=== PATIENT | male | born 1995 | race Caucasian/White ===

== ENCOUNTER 2020-05-01 10:26 | Emergency (ER) | payer OTHER, SELFPAY ==
--- NOTE | 2020-05-01 10:33 | ED.WOUNDLAC ---
HPI - Wound/Laceration General Chief Complaint: Wound/Laceration Stated Complaint: Finger Lac Time Seen by Provider: 05/01/20 10:39 Source: patient and RN notes reviewed Mode of arrival: ambulatory Limitations: no limitations History of Present Illness HPI narrative: 25 year old male presents with injury to second digit of left hand. Reports just prior to arrival while chopping abarca at work he lacerated the tip of the digit. Reports a large amount of bleeding, so he placed a rubber band around the digit. Reports he is up-to-date on his tetanus shot. Denies any other injury. Extremity Location: Left: hand Related Data Home Medications Medication Instructions Recorded Confirmed No Home Medications 05/01/20 05/01/20 Allergies Allergy/AdvReac Type Severity Reaction Status Date / Time NKDA Allergy Mild Other Uncoded 05/01/20 10:33 Review of Systems Review of Systems: Narrative: CONSTITUTIONAL: Denies malaise, chills, sweats, or fever. SKIN: Reports laceration to the tip of the second digit of the left hand MUSCULOSKELETAL: Denies muscle skeletal pain, decreased strength, sensation NEUROLOGIC: Denies numbness, weakness All systems reviewed & are unremarkable except as noted in HPI and below PMFSH Comments At time of signature, agree with nursing past medical, surgical, social and family history. There is no relevant family history pertinent to the presenting complaint Exam Narrative: Exam Narrative: GENERAL: Well-appearing, well-nourished, and in no acute distress. HEAD: Normocephalic EYES: PERRLA, conjunctivae clear NECK: Supple. CHEST: Speaks in full sentences. No respiratory distress. HEART: Regular rate and rhythm. Normal and equal peripheral pulses. EXTREMITIES: Second digit of left hand has normal strength and sensation. 5/5 strength with digit flexion, extension. Range of motion normal. No clubbing, cyanosis, or edema noted. Normal digital cascade with flexion of fingers, median, ulnar and radial nerve intact. Normal sensation of each side of finger. Can perform 'okay' sign, 'cross over finger test of index and middle fingers' and 'thumbs up' sign. Good capillary refill and radial pulse. Distal capillary refill less than 3 seconds. SKIN: Warn, dry, intact, pink. Skin avulsion involving tip of the nailbed noted to second digit of the left hand approximately 1 cm in diameter, beefy red tissue bed with minimal bleeding noted NEURO: Alert and oriented x3. PSYCH: Normal mood and affect Course Course Emergency Course: Patient is aware of diagnosis, understands and agrees to treatment plan. Anticipatory guidance given. Patient agrees to follow-up as directed and is aware of reasons to seek care at the emergency department. Portions of this record may have been created with voice recognition software Vital Signs Vital signs: Vital Signs Temperature 98.6 F 05/01/20 10:34 Pulse Rate 86 05/01/20 10:34 Respiratory Rate 12 05/01/20 10:34 Blood Pressure 154/85 H 05/01/20 10:34 Pulse Oximetry 99 05/01/20 10:34 Temperature 98.6 F 05/01/20 10:34 Pulse Rate 86 05/01/20 10:34 Respiratory Rate 12 05/01/20 10:34 Blood Pressure 154/85 H 05/01/20 10:34 Pulse Oximetry 99 05/01/20 10:34 Reviewed. MDM - Wound/Laceration MDM Narrative Medical decision making narrative: Surgicel applied, pressure held, hemostasis achieved. Sterile dressing applied. Anticipatory guidance given. Exam findings show no acute concerns or changes; patient is non-toxic appearing and is in no distress. Patient is appropriate for outpatient treatment and follow-up. Differential Diagnosis Differential diagnosis: Likely laceration, abrasion and avulsion of skin Critical Care Time Critical Care Time Critical Care Time: No Discharge Plan Discharge Clinical Impression: Avulsion of skin Patient Disposition: Home, Self-Care Condition: Stable Instructions: Skin Avulsion (ED) Additional Instructions: Keep
[2020-05-01 10:34] VITALS: BP 154/85; PULSE 86; RESP 12; TEMP 37; O2SAT 99
== END 2020-05-01 10:54 | disposition home or self-care (01) ==
PROVIDERS: Emergency Provider Nurse Practitioner
DX: S61.301A Unspecified open wound of left index finger with damage to nail, initial encounter (principal); W45.8XXA Other foreign body or object entering through skin, initial encounter; Y99.0 Civilian activity done for income or pay
CPT/HCPCS: 99212; G0463